=== PATIENT | female | born 1975 | race Caucasian/White ===

== ENCOUNTER 2018-03-19 00:06 | Emergency (ER) | payer BC, OTHER ==
[2018-03-19 00:31] VITALS: BP 119/80; PULSE 85; TEMP 98.7; BMI 33.0
[2018-03-19] MEDS ORDERED: diazePAM 5 MG TABLET PO ONE (00:55)
[2018-03-19] MEDS ORDERED: LIDOCAINE 5% TOPICAL PATCH TP ONE (00:55)
[2018-03-19] MEDS ORDERED: KETOROLAC TROMETHAMINE 30 MG/1 ML VIAL IM ONE (00:55)
[2018-03-19] MEDS ORDERED: KETOROLAC TROMETHAMINE 30 MG/1 ML VIAL ONE (01:00)
[2018-03-19] MEDS ORDERED: diazePAM 5 MG TABLET ONE (01:01)
[2018-03-19] MEDS ORDERED: LIDOCAINE 5% TOPICAL PATCH ONE (01:02)
--- NOTE | 2018-03-19 01:05 | PDOC ---
History of Present Illness - General Chief Complaint: Back Pain Stated Complaint: BACK PAIN Time Seen by Provider: 03/19/18 00:31 History Source: Patient Exam Limitations: No Limitations - History of Present Illness Initial Comments: 43 y/o F hx of sciatica, L4-L5 disc herniation presents with acute on chronic back pain from yesterday. Denies trauma. Has noted the back pain for some time but it has progressively gotten worse. 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 Also mentions she has a heavy child whom she sometimes has to carry. States the pain does not feel like her usual sciatic pain; feels more like stiffness. Pain is worse with movement of spine. Tried Alleve at home without much relief. Denies fever, sob, cp, abd pain, n/v, dysuria, hematuria, saddle/groin paresthesia, bowel/bladder incontinence, numbness/tingling/ weakness of extremities. Denies back surgeries. Denies drug use. 03/19/18 00:58 Past History - Past Medical History Allergies/Adverse Reactions: Allergies Allergy/AdvReac Type Severity Reaction Status Date / Time amoxicillin Allergy Verified 03/19/18 00:31 Home Medications: Ambulatory Orders Lidocaine 5% Patch [Lidoderm -] 1 patch TP DAILY #7 patch 03/19/18 Methocarbamol [Robaxin -] 500 mg PO TID PRN #21 tablet 03/19/18 Oxycodone HCl/Acetaminophen [Percocet 5-325 mg Tablet] 1 tab PO Q4H PRN #15 tablet MDD 6 03/19/18 COPD: No Other medical history: Herniated disc - Suicide/Smoking/Psychosocial Hx Smoking History: Never smoked Have you smoked in the past 12 months: No Information on smoking cessation initiated: No Hx Alcohol Use: No Drug/Substance Use Hx: No Substance Use Type: None Review of Systems - Review of Systems Comments:: See HPI 03/19/18 01:05 *Physical Exam - Vital Signs Last Vital Signs Temp Pulse Resp BP Pulse Ox 98.7 F 85 16 119/80 98 03/19/18 00:25 03/19/18 00:25 03/19/18 00:25 03/19/18 00:25 03/19/18 00:25 - Physical Exam General Appearance: No: Apparent Distress Neck: positive: Supple Respiratory/Chest: positive: Lungs Clear, Normal Breath Sounds. negative: Respiratory Distress Cardiovascular: positive: Regular Rhythm, Regular Rate, S1, S2. negative: Murmur Gastrointestinal/Abdominal: positive: Normal Bowel Sounds, Soft. negative: Tender, Distended, Guarding, Rebound Musculoskeletal: positive: Muscle Spasm, Other (+mild lumbar vertebral TTP along with B/L paravertebral muscular TTP) Extremity: positive: Normal Inspection, Pedal Edema, Calf Tenderness Integumentary: positive: Normal Color Neurologic: positive: Fully Oriented, Alert, Normal Mood/Affect, Motor Strength 5/5. negative: Numbness, Sensory Deficit Medical Decision Making - Medical Decision Making 43 y/o F with chronic back pain presents with acute on chronic pain. Likely pain is muscle strain/muscle spasm. Patient with no focal deficits and no concern for cauda equina. Unlikely kidney stones given no hematuria or renal colic type of pain. Unlikely sciatica given pain does not radiate down her legs and patient without numbness/tingling of her BLE. Unlikely fracture given no trauma. Unlikely spinal infection given patient is not immunosuppressed and she is not IVDU Plan: Toradol, Valium, Lidocaine patch, reassess 03/19/18 01:08 Patient reassessed and now feeling significantly better Pain has improved from 8/10 to 3-4/10 Patient able to stand and walk around LS x-ray with no acute findings New rx: Percocet, Robaxin, Lidocaine patch Return precautions discussed stable for discharge 03/19/18 02:35 *DC/Admit/Observation/Transfer Diagnosis at time of Disposition: Muscle spasm of back - Discharge Dispostion Disposition: HOME Condition at time of disposition: Improved Decision to Admit order: No - Prescriptions Prescriptions: Lidocaine 5% Patch [Lidoderm -] 1 patch TP DAILY #7 patch Methocarbamol [Robaxin -] 500 mg PO TID PRN #21 tablet PRN Reason: Muscle Spasms Oxycodone HCl/Acetaminophen [Percocet 5-325 mg Tablet] 1 tab PO Q4H PRN #15 tablet MDD 6 PRN Reason: Severe Pain - Referrals Referrals: Mali Burk [Primary Care Provider] - 3 days Stefano Vaca MD [Staff Physician] - 1 week - Patient Instructions Printed Discharge Instructions: DI for Low Back Pain Additional Instructions: Thank you for choosing [facility]. It was a pleasure taking care of you. You may take Tylenol 650 mg or Motrin 600 mg every 4 hours by mouth as needed for mild to moderate pain. Take Motrin with food. Do not take more than 4000 mg of Tylenol in 1 day. For severe pain, you may take Percocet. This mediation contains Tylenol so avoid excessive intake of Tylenol with it. This medication can make you constipated for which you may take over the counter Senna tablets as needed. This medication can also make you drowsy so please be cautious with driving or performing heavy physical work. Recommend warm compresses Follow-up with your PCP for further care and also consider physical therapy Also follow-up with neurologist for further evaluation Return to the Emergency Department if your symptoms worsen or persist, you have fever, shortness of breath, chest pain, severe abdominal pain, vomiting, weakness of extremities (arms and/or legs), unable to control bowel or bladder movements, unable to walk or other concerning symptoms. - Post Discharge Activity
[2018-03-19] MEDS ORDERED: LIDOCAINE PATCH REMOVAL MC SCH (22:00)
== END 2018-03-19 04:35 | disposition home or self-care (01) ==
LOC: JER 00:06
PROC: 3E0233Z Introduction of Anti-inflammatory into Muscle, Percutaneous Approach (ICD-10-PCS; principal; 2018-03-19)
DX: M62.830 Muscle spasm of back (principal)
CPT/HCPCS: 72100-TC-FY; 99282-25

== ENCOUNTER 2022-10-30 05:23 | Day surgery (SDC) | payer OTHER, BC ==
[2022-10-29 13:26] VITALS: BMI 35.9
[~2022-10-30 05:23] MED LIST: LIDOCAINE 1% P/F 10 MG/ML VIAL INF ONE
[2022-10-30] MEDS ORDERED: LIDOCAINE HCL/PF 1% SDV 5ML VIAL ONE (07:15)
[2022-10-30] MEDS ORDERED: BUPIVACAINE HCL/PF 0.75% 10 ML VIAL ONE (07:15)
[2022-10-30] MEDS ORDERED: BUPIVACAINE HCL/PF 0.75% 10 ML VIAL NR ONE (11:12)
[2022-10-30] MEDS ORDERED: LIDOCAINE 1% P/F 10 MG/ML VIAL INF ONE (11:12)
[2022-10-30 11:35] VITALS: RESP 18
[2022-10-30 11:50] VITALS: BP 127/79; PULSE 87; TEMP 97.1
[2022-10-30] MEDS ORDERED: ACETAMINOPHEN 500 MG TABLET (FP) PO PRN (16:20)
== END 2022-10-30 11:50 | disposition home or self-care (01) ==
LOC: JASU-SURG 05:23
PROVIDERS: ATTEND Pain Medicine Pain Medicine
PROC: 3E0T33Z Introduction of Anti-inflammatory into Peripheral Nerves and Plexi, Percutaneous Approach (ICD-10-PCS; 2022-10-30)
PROC: 3E0T3BZ Introduction of Anesthetic Agent into Peripheral Nerves and Plexi, Percutaneous Approach (ICD-10-PCS; principal; 2022-10-30 11:45)
DX: M47.816 Spondylosis without myelopathy or radiculopathy, lumbar region (principal)
CPT/HCPCS: 76000-TC-FY

== ENCOUNTER 2022-11-24 05:06 | Day surgery (SDC) | payer BC, OTHER ==
[2022-11-18 12:52] VITALS: BMI 35.9
[~2022-11-24 05:06] MED LIST changes: +BUPIVACAINE HCL/PF 0.75% 10 ML VIAL PNB ONE; -LIDOCAINE 1% P/F 10 MG/ML VIAL INF ONE; +LIDOCAINE HCL 1% PRESERVATIVE FREE - 30ML VIAL IJ ONE
[2022-11-24] MEDS ORDERED: BUPIVACAINE HCL/PF 0.75% 10 ML VIAL ONE (07:29)
[2022-11-24] MEDS ORDERED: LIDOCAINE HCL/PF 1% SDV 5ML VIAL ONE (07:29)
[2022-11-24] MEDS ORDERED: ACETAMINOPHEN 500 MG TABLET (FP) PO PRN (08:23)
[2022-11-24 14:31] VITALS: RESP 18
[2022-11-24] MEDS ORDERED: LIDOCAINE HCL 1% PRESERVATIVE FREE - 30ML VIAL IJ ONE (15:37)
[2022-11-24] MEDS ORDERED: BUPIVACAINE HCL/PF 0.75% 10 ML VIAL PNB ONE (15:37)
[2022-11-24 17:33] VITALS: BP 119/65; PULSE 59; TEMP 97.8
== END 2022-11-24 17:25 | disposition home or self-care (01) ==
LOC: JASU-SURG 05:06
PROVIDERS: ATTEND Pain Medicine Pain Medicine
PROC: 3E0T33Z Introduction of Anti-inflammatory into Peripheral Nerves and Plexi, Percutaneous Approach (ICD-10-PCS; 2022-11-24)
PROC: 3E0T3BZ Introduction of Anesthetic Agent into Peripheral Nerves and Plexi, Percutaneous Approach (ICD-10-PCS; principal; 2022-11-24 16:00)
DX: M47.816 Spondylosis without myelopathy or radiculopathy, lumbar region (principal)
CPT/HCPCS: 76000-TC-FY

== ENCOUNTER 2022-12-15 05:01 | Day surgery (SDC) | payer BC, OTHER ==
[2022-12-11 14:59] VITALS: BMI 35.9
[2022-12-15] MEDS ORDERED: ACETAMINOPHEN 500 MG TABLET (FP) PO PRN (09:52)
[2022-12-15 13:20] VITALS: RESP 20
[2022-12-15] MEDS ORDERED: BUPIVACAINE HCL/PF 0.5% (5MG/ML) 10 ML VIAL ONE (13:22)
[2022-12-15] MEDS ORDERED: LIDOCAINE HCL 1% PRESERVATIVE FREE - 30ML VIAL IJ ONE (14:11)
[2022-12-15] MEDS ORDERED: LIDOCAINE HCL/PF 2% SDV 5ML VIAL INF ONE (14:14)
[2022-12-15] MEDS ORDERED: BUPIVACAINE HCL/PF 0.75% 10 ML VIAL NR ONE (14:15)
[2022-12-15] MEDS ORDERED: DEXAMETHASONE SOD PHOSPHATE 10 MG/1 ML VIAL IVPUSH ONE (14:16)
[2022-12-15 15:27] VITALS: BP 128/80; PULSE 79; TEMP 98.5
== END 2022-12-15 15:02 | disposition home or self-care (01) ==
LOC: JASU-SURG 05:01
PROVIDERS: ATTEND Pain Medicine Pain Medicine
PROC: 015B3ZZ Destruction of Lumbar Nerve, Percutaneous Approach (ICD-10-PCS; principal; 2022-12-15 15:00)
DX: M47.816 Spondylosis without myelopathy or radiculopathy, lumbar region (principal)
CPT/HCPCS: 76000-TC-FY; J1100

== ENCOUNTER → 2023-01-12 | Day surgery (SDC) | payer BC, OTHER ==
[2023-01-11 16:00] VITALS: BMI 38.0
[~2023-01-12] MED LIST changes: +BUPIVACAINE 0.75% IN DEXTROSE/PF 2ML AMPULE NR ONE; -BUPIVACAINE HCL/PF 0.75% 10 ML VIAL PNB ONE; +DEXAMETHASONE SOD PHOSPHATE 10 MG/1 ML VIAL IM ONE; -LIDOCAINE HCL 1% PRESERVATIVE FREE - 30ML VIAL IJ ONE; +LIDOCAINE HCL 1% PRESERVATIVE FREE - 30ML VIAL INF ONE; +LIDOCAINE HCL/PF 2% SDV 5ML VIAL INF ONE
[2023-01-12 11:35] VITALS: BP 112/83; PULSE 77; RESP 18; TEMP 97.5
== END | disposition home or self-care (01) ==
LOC: JASU-SURG 05:10
PROVIDERS: ATTEND Pain Medicine Pain Medicine
PROC: 015B3ZZ Destruction of Lumbar Nerve, Percutaneous Approach (ICD-10-PCS; principal; 2023-01-12 14:15)
DX: M47.816 Spondylosis without myelopathy or radiculopathy, lumbar region (principal)
CPT/HCPCS: 76000-TC-FY; J1100